=== PATIENT | female | born 1955 | race Caucasian/White ===

== ENCOUNTER 2016-07-22 14:47 | Emergency (ER) | payer OTHER ==
[~2016-07-22] VITALS: Ht 157.5 cm; Wt 80.0 kg
[~2016-07-22 14:47] MED LIST: ALBUTEROL SUL0.083 % IN; ALBUTEROL2.5 MG/31 NEB; ALENDRONATE70 MG OR; ALENDRONATE70 MG PO; ALPRAZOLAM0.25 M1 PO; ALPRAZOLAM0.25 MG PO; AMITRIPTYLIN25 MG OR; AMOX/K CLAV875 M1 PO; AMOXICILLIN500 MG PO; AMPYRA10 MG PO; ASPIRIN LOW DOS81 M2 PO; ASPIRIN81 MG PO; ATIVAN0.5 MG PO; ATROVENT HFA17 MCG IN; ATROVENT I0.5 MG/VIA IN; ATROVENT NAS0.03 % IN; AUGMENTIN500TAB PO; B-1250 MCG PO; B12 LIQUID OR; BABY ASPIRIN81 MG OR; BACLOFEN20 MG OR; BACTRIM DS1 TAB PO; BENADRYL 50MG C50 MG OR; BENAZEPRIL5 M1 OR; BIOTIN1000 MCG PO; CALCIUM + D600 MG PO; CIPROFLOXACN500 MG PO; COPAXONE20 MG/ML SC; D31000 UNIT PO; DIVALPROEX500 MG PO; FIORICET PO; FLEXERIL10 MG PO; FLORASTOR250 M1 PO; FLUZONE PEDIATR1 INJ IM; FUROSEMIDE20 MG PO; GABAPENTIN300 MG OR; GABAPENTIN300 MG PO; IPRATROPIUM BROMIDE NEB; KETOCONAZOLE2 % EX; LEVAQUIN500 MG PO; LEVETIRACE500 MG/5 M PO; LIPITOR10 MG OR; LORTAB 1010 MG PO; LORTAB 7.5-3251 TAB PO; LORTAB5 PO; Levaquin PO; MACROBID100 MG PO; MEDDOSEPAK PO; NEBULIZER KIT/TUBING NEB; NEURONTIN600 MG OR; NITROSTAT0.4 MG SL; OXYBUTYNIN5 M1 PO; OXYCODONE HCL5 MG PO; PERCOCET 5/325M1 TAB PO; PHENERGAN25 MG/TAB PO; PLAVIX75 MG OR; PREDNISONE10 MG PO; PREDNISONE20 MG PO; PROAIR HFA IN; PROVENTIL HFA IN; SERTRALINE100 MG PO; SERTRALINE50 MG PO; SILVADENE1 % EX; SIMVASTATIN20 MG PO; TECFIDERA120 MG PO; TECFIDERA240 MG PO; TRIMOX500 MG PO; TUBERSOL5 MG/0.1 M ID; TYLENOL500 MG OR; ULTRAM50 M1 PO; VALIUM5 MG OR; VITAMIN D H1000 UNIT; VITAMIN D1000 UNI1 OR; VITAMIN D400 UNI2 OR; VITAMIN E400 UNIT PO; WEIGHT LOSS PO; ZITHROMAX500 MG PO; ZOCOR20 MG OR; ZOFRAN ODT4 MG OR; ZOFRAN ODT4 MG PO; ZOLOFT100 MG OR; ZOLOFT50 MG PO; [UNRECOGNIZED DRUG - CODE] PO; [UNRECOGNIZED DRUG - OTHER] IN; copaxone IM
[2016-07-22] MEDS ORDERED: REBIF SC (15:04)
[2016-07-22 15:29] LABS: HEMATOCRIT 39.6 % (37.0-47.0); HEMOGLOBIN 13.1 g/dl (12.0-16.0); IMMATURE GRANULOCYTES 0.4 % (0.0-1.0); MEAN CELL VOLUME 93.6 fL CALC (80.0-100.0); MEAN CORPUSCULAR HGB CONC 33.1 g/L CALC (32.0-36.0); NEUT# 3.07 thou/uL (2.00-7.15); RED BLOOD COUNT 4.23 mill/uL (4.20-5.60); RED CELL DISTRI WIDTH 14.2 % (11.5-15.5)
[2016-07-22 15:44] LABS: ALBUMIN 4.2 g/dL (3.2-5.0); ALKALINE PHOSPHATASE 102 u/l (38-126); ANION GAP 16 (6-22 (CALC)); BILIRUBIN, TOTAL 0.7 mg/dL (0.0-1.4); BUN 10 mg/dL (7-17); BUN/CREATININE RATIO 18 (12-20 (CALC)); CALCIUM 8.8 mg/dL (8.4-10.2); CARBON DIOXIDE 24 mmol/l (22-30); CHLORIDE 106 mmol/l (95-108); CREATININE 0.6 mg/dL (0.5-1.0); ETHYL ALCOHOL 0 mg/dl (0-30); GFR > 60 ML/MIN (>=60 (CALC)); GFR FOR AFR.AMER. > 60 ML/MIN (>=60 (CALC)); GLUCOSE 103 mg/dL (65-105); POTASSIUM 4.2 mmol/l (3.5-5.1); SGOT/AST 34 u/l (14-36); SGPT/ALT 41 u/l (9-52); SODIUM 142 mmol/l (137-146); TOTAL PROTEIN 6.9 g/dL (6.3-8.2)
[2016-07-22 15:56] LABS: MYOGLOBIN 13 ng/mL (0 - 62)
[2016-07-22 15:59] LABS: URINE BILIRUBIN - DIPSTICK NEGATIVE (NEGATIVE); URINE BLOOD DIPSTICK NEGATIVE (NEGATIVE); URINE CLARITY CLEAR; URINE COLOR YELLOW; URINE GLUCOSE - DIPSTICK NEGATIVE (NEGATIVE); URINE KETONE NEGATIVE (NEGATIVE); URINE LEUK ESTERASE TRACE (NEGATIVE); URINE NITRITE - DIPSTICK NEGATIVE (Negative); URINE PROTEIN - DIPSTICK NEGATIVE (NEG-TRACE); URINE UROBILINOGEN - DIPSTICK 0.2 E.U./dL (0.2)
[2016-07-22 16:04] LABS: BARBITURATES NEGATIVE (NEGATIVE); COCAINE NEGATIVE (NEGATIVE); METHADONE NEGATIVE (NEGATIVE); TETRAHYDROCANNABIONOL POSITIVE (NEGATIVE); TRICYLIC ANTIDEPRESSANTS NEGATIVE (NEGATIVE)
[2016-07-22 16:05] LABS: OXCYCODONE NEGATIVE (NEGATIVE)
[2016-07-22] MEDS ORDERED: ULTRAM50 M1 PO (16:24)
[2016-07-22 16:33] VITALS: BP 100/56
== END 2016-07-22 17:04 | disposition home or self-care (01) | DRG 605 ==
LOC: ED 14:47
PROVIDERS: Emergency Medicine
DX: S20.211A Contusion of right front wall of thorax, initial encounter (principal); I10 Essential (primary) hypertension; W01.0XXA Fall on same level from slipping, tripping and stumbling without subsequent striking against object, initial encounter; Y92.009 Unspecified place in unspecified non-institutional (private) residence as the place of occurrence of the external cause; I25.10 Atherosclerotic heart disease of native coronary artery without angina pectoris; Z95.5 Presence of coronary angioplasty implant and graft; F17.210 Nicotine dependence, cigarettes, uncomplicated

== ENCOUNTER 2016-10-08 00:46 | Emergency (ER) | payer OTHER ==
[~2016-10-08] VITALS: Ht 157.5 cm; Wt 70.4 kg
[~2016-10-08 00:46] MED LIST changes: +REBIF SC
[2016-10-08 02:40] VITALS: BP 131/80
== END 2016-10-08 02:40 | disposition home or self-care (01) | DRG 605 ==
LOC: ED 00:46
PROC: 0HQ0XZZ Repair Scalp Skin, External Approach (ICD-10-PCS; principal; 2016-10-08)
DX: S01.01XA Laceration without foreign body of scalp, initial encounter (principal); W01.0XXA Fall on same level from slipping, tripping and stumbling without subsequent striking against object, initial encounter; Y92.009 Unspecified place in unspecified non-institutional (private) residence as the place of occurrence of the external cause

== ENCOUNTER 2016-10-14 21:39 | Emergency (ER) | payer OTHER ==
[~2016-10-14] VITALS: Ht 157.5 cm; Wt 75.0 kg
[2016-10-14 22:25] VITALS: BP 132/80
== END 2016-10-14 22:25 | disposition home or self-care (01) | DRG 950 ==
LOC: ED 21:39
DX: S01.90XD Unspecified open wound of unspecified part of head, subsequent encounter (principal); G35 Multiple sclerosis; I10 Essential (primary) hypertension; I25.10 Atherosclerotic heart disease of native coronary artery without angina pectoris; F32.9 Major depressive disorder, single episode, unspecified; I69.90 Unspecified sequelae of unspecified cerebrovascular disease; F17.210 Nicotine dependence, cigarettes, uncomplicated; X58.XXXD Exposure to other specified factors, subsequent encounter; Z95.5 Presence of coronary angioplasty implant and graft

== ENCOUNTER 2016-11-25 14:40 | Observation (INO) | payer OTHER ==
[~2016-11-25] VITALS: Ht 157.5 cm; Wt 71.7 kg
[2016-11-25 15:22] LABS: HEMATOCRIT 40.7 % (37.0-47.0); HEMOGLOBIN 13.5 g/dl (12.0-16.0); IMMATURE GRANULOCYTES 0.3 % (0.0-1.0); MEAN CELL VOLUME 92.9 fL CALC (80.0-100.0); MEAN CORPUSCULAR HGB 30.8 pG CALC (26.0-32.0); MEAN CORPUSCULAR HGB CONC 33.2 g/L CALC (32.0-36.0); NEUT# 3.72 thou/uL (2.00-7.15); RED BLOOD COUNT 4.38 mill/uL (4.20-5.60); RED CELL DISTRI WIDTH 14.7 % (11.5-15.5)
[2016-11-25 15:36] LABS: ALBUMIN 4.3 g/dL (3.2-5.0); ALKALINE PHOSPHATASE 108 u/l (38-126); ANION GAP 16 (6-22 (CALC)); BILIRUBIN, TOTAL 0.5 mg/dL (0.0-1.4); BUN 14 mg/dL (7-17); BUN/CREATININE RATIO 26 (12-20 (CALC)); CALCIUM 9.1 mg/dL (8.4-10.2); CARBON DIOXIDE 23 mmol/l (22-30); CHLORIDE 105 mmol/l (95-108); CREATININE 0.5 mg/dL (0.5-1.0); GFR > 60 ML/MIN (>=60 (CALC)); GFR FOR AFR.AMER. > 60 ML/MIN (>=60 (CALC)); GLUCOSE 126 mg/dL (65-105); POTASSIUM 4.1 mmol/l (3.5-5.1); SGOT/AST 18 u/l (14-36); SGPT/ALT 34 u/l (9-52); SODIUM 140 mmol/l (137-146); TOTAL PROTEIN 6.9 g/dL (6.3-8.2)
[2016-11-25 15:48] LABS: MYOGLOBIN 20 ng/mL (0 - 62)
[2016-11-25 18:31] VITALS: BP 131/77
[2016-11-25 23:54] VITALS: BP 80/50
[2016-11-26 04:59] VITALS: BP 84/44
[2016-11-26 07:46] VITALS: BP 92/37
[2016-11-26 15:47] VITALS: BP 121/70
[2016-11-26] MEDS ORDERED: ULTRAM50 M1 PO (16:31)
== END 2016-11-26 20:00 | disposition home or self-care (01) | DRG 313 ==
LOC: ENPENDDIS → ED 14:40 → ED-I 17:26 → ED 17:35 → MS2 17:36
PROVIDERS: Emergency Medicine; ADMIT Internal Medicine; ATTEND Internal Medicine
DX: R07.89 Other chest pain (principal); I25.10 Atherosclerotic heart disease of native coronary artery without angina pectoris; G35 Multiple sclerosis; I10 Essential (primary) hypertension; J44.9 Chronic obstructive pulmonary disease, unspecified; E87.6 Hypokalemia; F17.210 Nicotine dependence, cigarettes, uncomplicated; F32.9 Major depressive disorder, single episode, unspecified; Z86.73 Personal history of transient ischemic attack (TIA), and cerebral infarction without residual deficits; Z95.0 Presence of cardiac pacemaker; Z95.5 Presence of coronary angioplasty implant and graft
CPT/HCPCS: G0378